=== PATIENT | male | born 1985 | race Caucasian/White ===

== ENCOUNTER 2023-05-02 15:49 | Inpatient (IN) | payer BC ==
[2023-05-02 16:30] LABS: #Basophils 0.1 10x3/uL (0.0-0.2); #Eosinphils 0.5 10x3/uL (0.0-0.5); #Monocytes 0.3 10x3/uL (0.0-1.1); #Neutrophils 4.7 10x3/uL (1.5-8.4); %Basophils 0.7 % (0.0-2.0); %Eosinophils 6.4 % (0.0-6.0); %Lymphocytes 23.8 % (18.0-47.0); %Monocytes 3.8 % (0.0-10.0); %Neutrophils 65.2 % (40.0-75.0); Hemoglobin 16.4 g/dL (13.5-17.5); Mean Corpuscular HGB CONC 35.4 g/dL (32.0-36.0); Mean Corpuscular Hemoglobin 31.5 pg (27.0-33.0); Mean Corpuscular Volume 88.9 fl (81.2-95.1); Mean Platelet Volume 11.2 fl (7.4-10.4); Platelet Count 351 10x3/uL (150-450); RBC Distribution Width 11.6 % (11.5-14.5); Red Blood Cell (RBC) Count 5.21 10x6/uL (4.32-5.72); White Blood Cell (WBC) Count 7.2 10x3/uL (3.5-10.5)
[2023-05-02 16:40] LABS: ALT (SGPT) 34 U/L (8-55); AST (SGOT) 26 U/L (5-34); Albumin 5.2 g/dL (3.5-5.0); Alkaline Phosphatase 56 U/L (40-110); Anion Gap 16 mmol/L (10-20); BUN (Urea Nitrogen) 11 mg/dL (8.9-20.6); Bilirubin, Total 0.4 mg/dL (0.2-1.2); Calc. Creatinine Clearance 0 mL/min (70-130); Calcium 10.1 mg/dL (7.8-10.44); Carbon Dioxide 23 mmol/L (22-29); Chloride 106 mmol/L (98-107); Estimated GFR 101; Globulin 3.1 g/dL (2.4-3.5); Glucose 108 mg/dL (70-105); Potassium 3.8 mmol/L (3.5-5.1); Protein, Total 8.3 g/dL (6.0-8.3); Sodium 141 mmol/L (136-145)
[2023-05-02] MEDS ORDERED: Diltiazem 125 MG/25 ML SDV ONE (17:08)
[2023-05-02] MEDS ORDERED: Ondansetron ODT 4 MG TAB PO PRN (18:05)
[2023-05-02] MEDS ORDERED: Acetaminophen 500 MG TAB PO PRN (18:05)
[2023-05-02] MEDS ORDERED: Ondansetron PF 4 MG/2 ML Vial IVP PRN (18:05)
[2023-05-02] MEDS ORDERED: Diltiazem 125 MG in Sodium Chloride 0.9% 100 ML IVPB SCH (18:15)
[2023-05-02 20:42] LABS: Troponin I 0.012 ng/mL (< 0.028)
[2023-05-02] MEDS ORDERED: Famotidine 20 MG TAB ONE (20:42)
[2023-05-02] MEDS: Famotidine 20 MG TAB PO SCH (21:03)
[2023-05-02 23:42] LABS: Troponin I Less than 0.010 ng/mL (< 0.028)
[2023-05-03 04:07] LABS: #Eosinphils 0.5 10x3/uL (0.0-0.5); #Monocytes 0.5 10x3/uL (0.0-1.1); #Neutrophils 2.4 10x3/uL (1.5-8.4); %Basophils 0.7 % (0.0-2.0); %Eosinophils 9.2 % (0.0-6.0); %Lymphocytes 39.1 % (18.0-47.0); %Monocytes 8.3 % (0.0-10.0); %Neutrophils 42.7 % (40.0-75.0); Hemoglobin 14.4 g/dL (13.5-17.5); Mean Corpuscular HGB CONC 34.4 g/dL (32.0-36.0); Mean Corpuscular Hemoglobin 30.8 pg (27.0-33.0); Mean Corpuscular Volume 89.5 fl (81.2-95.1); Mean Platelet Volume 10.7 fl (7.4-10.4); Platelet Count 309 10x3/uL (150-450); RBC Distribution Width 11.9 % (11.5-14.5); Red Blood Cell (RBC) Count 4.67 10x6/uL (4.32-5.72); White Blood Cell (WBC) Count 5.7 10x3/uL (3.5-10.5)
[2023-05-03 04:22] LABS: Anion Gap 13 mmol/L (10-20); BUN (Urea Nitrogen) 12 mg/dL (8.9-20.6); Calc. Creatinine Clearance 129 mL/min (70-130); Carbon Dioxide 23 mmol/L (22-29); Chloride 111 mmol/L (98-107); Estimated GFR 108; Glucose 90 mg/dL (70-105); Sodium 143 mmol/L (136-145)
[2023-05-03] MEDS: Famotidine 20 MG TAB PO SCH (08:26)
[2023-05-03 08:29] VITALS: BMI 29.2
[2023-05-03 13:00] VITALS: BP 120/77; TEMP 97.8
== END 2023-05-03 12:30 | disposition home or self-care (01) | DRG 310 ==
LOC: CSHERS 15:49 → CSHERHOLD 18:50 → CSHTELE 05-03 08:00
PROVIDERS: ADMIT Emergency Medicine; ATTEND Physician Assistant
DX: I48.0 Paroxysmal atrial fibrillation (principal); I34.0 Nonrheumatic mitral (valve) insufficiency
CPT/HCPCS: 71045; 80048; 80053; 83735; 84443; 84484; 85025; 93005; 93306; 96361; 96372; 96374; J1650